=== PATIENT | female | born 1975 | race Caucasian/White ===

== ENCOUNTER 2018-03-20 11:39 | Emergency (ER) | payer OTHER, MEDICAID ==
[~2018-03-20] VITALS: Ht 167.6 cm; Wt 105.0 kg
[2018-03-20 12:08] LABS: HEMATOCRIT 34.7 % (37.0-47.0); HEMOGLOBIN 11.3 g/dl (12.0-16.0); IMMATURE GRANULOCYTES 0.3 % (0.0-5.0); MEAN CELL VOLUME 89.2 fL CALC (80.0-100.0); MEAN CORPUSCULAR HGB CONC 32.6 g/L CALC (32.0-36.0); NEUT# 3.89 thou/uL (2.00-7.15); RED BLOOD COUNT 3.89 mill/uL (4.20-5.60); RED CELL DISTRI WIDTH 14.9 % (11.5-15.5)
[2018-03-20 12:21] LABS: ALBUMIN 3.4 g/dL (3.2-5.0); ALKALINE PHOSPHATASE 51 u/l (38-126); ANION GAP 10 (6-22 (CALC)); BILIRUBIN, TOTAL 0.5 mg/dL (0.0-1.4); BUN 12 mg/dL (7-17); BUN/CREATININE RATIO 17 (12-20 (CALC)); CARBON DIOXIDE 25 mmol/l (22-30); CHLORIDE 110 mmol/l (95-108); CPK 60 u/l (30-165); CREATININE 0.7 mg/dL (0.5-1.0); GFR > 60 ML/MIN (>=60 (CALC)); GFR FOR AFR.AMER. > 60 ML/MIN (>=60 (CALC)); LIPASE 35 u/l (23-300); POTASSIUM 3.6 mmol/l (3.5-5.1); SGOT/AST 26 u/l (14-36); SODIUM 141 mmol/l (137-146); TOTAL PROTEIN 5.9 g/dL (6.3-8.2)
[2018-03-20 13:46] VITALS: BP 163/101
== END 2018-03-20 13:46 | DRG 605 ==
LOC: ED 11:39
PROVIDERS: Family Medicine
DX: S80.01XA Contusion of right knee, initial encounter (principal); S80.212A Abrasion, left knee, initial encounter; R07.89 Other chest pain; V49.50XA Passenger injured in collision with unspecified motor vehicles in traffic accident, initial encounter
CPT/HCPCS: Q9967

== ENCOUNTER 2018-05-18 08:00 | Observation (INO) | payer MEDICAID ==
[~2018-05-18] VITALS: Ht 167.6 cm; Wt 107.0 kg
[2018-05-18 08:30] LABS: HEMATOCRIT 36.4 % (37.0-47.0); HEMOGLOBIN 11.4 g/dl (12.0-16.0); IMMATURE GRANULOCYTES 0.3 % (0.0-5.0); MEAN CORPUSCULAR HGB CONC 31.3 g/L CALC (32.0-36.0); NEUT# 3.89 thou/uL (2.00-7.15); RED BLOOD COUNT 4.38 mill/uL (4.20-5.60); RED CELL DISTRI WIDTH 15.7 % (11.5-15.5)
[2018-05-18 08:34] LABS: ANION GAP 12 (6-22 (CALC)); BUN 14 mg/dL (7-17); BUN/CREATININE RATIO 21 (12-20 (CALC)); CARBON DIOXIDE 23 mmol/l (22-30); CHLORIDE 112 mmol/l (95-108); CREATININE 0.7 mg/dL (0.5-1.0); GFR > 60 ML/MIN (>=60 (CALC)); GFR FOR AFR.AMER. > 60 ML/MIN (>=60 (CALC)); MEAN CELL VOLUME 83.1 fL CALC (80.0-100.0); SODIUM 142 mmol/l (137-146)
[2018-05-18 08:35] LABS: POTASSIUM 4.5 mmol/l (3.5-5.1)
[2018-05-18 15:00] VITALS: BP 121/81
[2018-05-18 16:08] LABS: C-REACTIVE PROTEIN 0.5 mg/dL (0-0.9)
[2018-05-18 19:28] VITALS: BP 158/83
[2018-05-19] VITALS (9 sets, daily range): BP systolic 118–157; BP diastolic 67–93
[2018-05-19 05:32] LABS: HEMATOCRIT 33.6 % (37.0-47.0); HEMOGLOBIN 10.4 g/dl (12.0-16.0); IMMATURE GRANULOCYTES 0.2 % (0.0-5.0); MEAN CELL VOLUME 83.6 fL CALC (80.0-100.0); MEAN CORPUSCULAR HGB 25.9 pG CALC (26.0-32.0); NEUT# 3.28 thou/uL (2.00-7.15); RED BLOOD COUNT 4.02 mill/uL (4.20-5.60); RED CELL DISTRI WIDTH 15.8 % (11.5-15.5)
[2018-05-19 05:49] LABS: ALBUMIN 3.1 g/dL (3.2-5.0); ALKALINE PHOSPHATASE 69 u/l (38-126); ANION GAP 7 (6-22 (CALC)); BILIRUBIN, TOTAL 0.4 mg/dL (0.0-1.4); BUN 8 mg/dL (7-17); BUN/CREATININE RATIO 12 (12-20 (CALC)); CARBON DIOXIDE 25 mmol/l (22-30); CHLORIDE 114 mmol/l (95-108); CREATININE 0.6 mg/dL (0.5-1.0); GFR > 60 ML/MIN (>=60 (CALC)); GFR FOR AFR.AMER. > 60 ML/MIN (>=60 (CALC)); SGOT/AST 12 u/l (14-36); SODIUM 142 mmol/l (137-146); TOTAL PROTEIN 5.8 g/dL (6.3-8.2)
[2018-05-19 22:07] LABS: COCAINE NEGATIVE (NEGATIVE); METHADONE NEGATIVE (NEGATIVE); TETRAHYDROCANNABIONOL POSITIVE (NEGATIVE)
[2018-05-19 22:08] LABS: BARBITURATES NEGATIVE (NEGATIVE); OXCYCODONE NEGATIVE (NEGATIVE); TRICYLIC ANTIDEPRESSANTS NEGATIVE (NEGATIVE)
[2018-05-20 00:01] VITALS: BP 166/87
[2018-05-20 04:04] VITALS: BP 135/86
[2018-05-20 08:00] VITALS: BP 150/92
[2018-05-20 11:20] VITALS: BP 136/89
[2018-05-20 16:00] VITALS: BP 153/97
[2018-05-20 18:59] VITALS: BP 160/91
[2018-05-21 04:30] VITALS: BP 167/90
[2018-05-21 05:34] LABS: HEMATOCRIT 34.7 % (37.0-47.0); IMMATURE GRANULOCYTES 0.4 % (0.0-5.0); MEAN CORPUSCULAR HGB CONC 31.7 g/L CALC (32.0-36.0); NEUT# 2.82 thou/uL (2.00-7.15); RED BLOOD COUNT 4.23 mill/uL (4.20-5.60); RED CELL DISTRI WIDTH 15.3 % (11.5-15.5)
[2018-05-21 06:10] LABS: ALBUMIN 3.4 g/dL (3.2-5.0); ALKALINE PHOSPHATASE 69 u/l (38-126); ANION GAP 11 (6-22 (CALC)); BILIRUBIN, TOTAL 0.3 mg/dL (0.0-1.4); BUN 6 mg/dL (7-17); BUN/CREATININE RATIO 10 (12-20 (CALC)); CARBON DIOXIDE 25 mmol/l (22-30); CHLORIDE 108 mmol/l (95-108); CREATININE 0.6 mg/dL (0.5-1.0); GFR > 60 ML/MIN (>=60 (CALC)); GFR FOR AFR.AMER. > 60 ML/MIN (>=60 (CALC)); MAGNESIUM 1.7 mg/dL (1.6-2.3); POTASSIUM 3.6 mmol/l (3.5-5.1); SGOT/AST 14 u/l (14-36); SODIUM 141 mmol/l (137-146); TOTAL PROTEIN 6.4 g/dL (6.3-8.2)
[2018-05-21 08:02] VITALS: BP 155/90
[2018-05-21 11:45] VITALS: BP 160/82
[2018-05-21 15:30] VITALS: BP 155/99
[2018-05-21 19:50] VITALS: BP 144/80
[2018-05-22] VITALS (7 sets, daily range): BP systolic 110–175; BP diastolic 70–99
[2018-05-22 05:10] LABS: HEMOGLOBIN 11.1 g/dl (12.0-16.0); IMMATURE GRANULOCYTES 0.2 % (0.0-5.0); MEAN CELL VOLUME 81.4 fL CALC (80.0-100.0); MEAN CORPUSCULAR HGB 25.8 pG CALC (26.0-32.0); MEAN CORPUSCULAR HGB CONC 31.7 g/L CALC (32.0-36.0); NEUT# 2.85 thou/uL (2.00-7.15); RED BLOOD COUNT 4.3 mill/uL (4.20-5.60); RED CELL DISTRI WIDTH 15.3 % (11.5-15.5)
[2018-05-22 05:28] LABS: ALBUMIN 3.4 g/dL (3.2-5.0); ALKALINE PHOSPHATASE 63 u/l (38-126); ANION GAP 10 (6-22 (CALC)); BILIRUBIN, TOTAL 0.4 mg/dL (0.0-1.4); BUN 9 mg/dL (7-17); BUN/CREATININE RATIO 15 (12-20 (CALC)); CARBON DIOXIDE 25 mmol/l (22-30); CHLORIDE 109 mmol/l (95-108); CREATININE 0.6 mg/dL (0.5-1.0); GFR > 60 ML/MIN (>=60 (CALC)); GFR FOR AFR.AMER. > 60 ML/MIN (>=60 (CALC)); MAGNESIUM 1.8 mg/dL (1.6-2.3); POTASSIUM 3.9 mmol/l (3.5-5.1); SODIUM 140 mmol/l (137-146); TOTAL PROTEIN 6.2 g/dL (6.3-8.2)
[2018-05-22 05:31] LABS: SGOT/AST 31 u/l (14-36)
[2018-05-22] MEDS ORDERED: PERCOCET 5/325M1 TAB PO (15:20)
[2018-05-22] MEDS ORDERED: ROCEPHIN 2 GM2 GM IV (15:21)
[2018-05-23 00:14] VITALS: BP 144/79
[2018-05-23 04:10] VITALS: BP 140/82
[2018-05-23 07:56] VITALS: BP 140/97
[2018-05-23 16:00] VITALS: BP 115/88
[2018-05-23 19:15] VITALS: BP 113/70
[2018-05-24 05:24] VITALS: BP 149/91
[2018-05-24 07:25] VITALS: BP 152/85
== END 2018-05-24 13:00 | disposition home or self-care (01) ==
LOC: ED 08:00 → ED-I 12:46 → ED 13:13 → MS2 13:14
PROVIDERS: Family Medicine; Nurse Practitioner Family; ADMIT Internal Medicine Nephrology; ATTEND Internal Medicine Nephrology
DX: L02.415 Cutaneous abscess of right lower limb (principal); L03.115 Cellulitis of right lower limb; S81.811A Laceration without foreign body, right lower leg, initial encounter; E05.00 Thyrotoxicosis with diffuse goiter without thyrotoxic crisis or storm; T38.1X6A Underdosing of thyroid hormones and substitutes, initial encounter; I96 Gangrene, not elsewhere classified; E66.01 Morbid (severe) obesity due to excess calories; F41.9 Anxiety disorder, unspecified; F17.210 Nicotine dependence, cigarettes, uncomplicated; B96.20 Unspecified Escherichia coli [E. coli] as the cause of diseases classified elsewhere; V89.2XXA Person injured in unspecified motor-vehicle accident, traffic, initial encounter; Z91.128 Patient's intentional underdosing of medication regimen for other reason; Z68.37 Body mass index [BMI] 37.0-37.9, adult
CPT/HCPCS: G0378; J0131; J1650; J3370; Q9967

== ENCOUNTER → 2018-08-20 | Outpatient (REF) | payer OTHER ==
[~2018-08-20] MED LIST: PERCOCET 5/325M1 TAB PO; ROCEPHIN 2 GM2 GM IV
[2018-08-20 10:18] VITALS: BP 201/113
--- NOTE | 2018-08-20 10:20 | NUR ---
ADVISE PATIENT OF HIGH BLOOD PRESSURE. TOOK B/P THREE TIMES AND ALL WERE HIGH. ADVISED PATIENT TO GO TO THE ER OR HER PRIMARY PHYSICIAN TODAY
== END | disposition home or self-care (01) | DRG 605 ==
LOC: FIOURUCCI 08-17 09:00 → FIORUCCI 09:08
PROVIDERS: ATTEND Surgery
DX: S81.811A Laceration without foreign body, right lower leg, initial encounter (principal); V49.9XXS Car occupant (driver) (passenger) injured in unspecified traffic accident, sequela; R60.9 Edema, unspecified; R03.0 Elevated blood-pressure reading, without diagnosis of hypertension; Z48.00 Encounter for change or removal of nonsurgical wound dressing